=== PATIENT | male | born 1980 | race Two or more races ===

== ENCOUNTER 2018-07-06 00:51 | Emergency (ER) | payer MEDICAID, SELFPAY ==
[~2018-07-06] VITALS: Ht 177.8 cm; Wt 77.1 kg
[~2018-07-06 00:51] MED LIST: NORCO 5-325 TA1 EACH ORAL; NORCO 5-325 TA1 EACH PO
[2018-07-06] MEDS ORDERED: NKM (00:58)
--- NOTE | 2018-07-06 01:00 | NUR ---
ED Nurse Note: pt presents to ED with c/o left testicular pain for three days - denies trauma. 08/22. AO4. NAD. VSS.
--- NOTE | 2018-07-06 01:10 | NUR ---
ED Nurse Note: Urine collected; sent down to lab.
[2018-07-06 01:26] VITALS: BP 143/86
[2018-07-06 01:33] LABS: APPEARANCE,URINE CLEAR; BILIRUBIN, URINE NEGATIVE (NEGATIVE); GLUCOSE, URINE (UA) NEGATIVE (NEGATIVE); KETONES,URINE NEGATIVE (NEGATIVE); LEUKOCYTE ESTERASE ,URINE 1+ (NEGATIVE); NITRITE,URINE NEGATIVE (NEGATIVE); PH,URINE 5 (4.5-8.0); PROTEIN,URINE 1+ (NEGATIVE); UROBILINOGEN,URINE NORMAL MG/DL (0.0-1.0)
--- NOTE | 2018-07-06 01:49 | Emergency Room Report ---
History of Present Illness General Chief Complaint: Male Urogenital Problems Source: Patient Present Illness HPI This is a 37-year-old male with no past medical history. He presents with chief complaint. His main complaint is fungal infection of his toenails. His been ongoing for years. His girlfriend cut the nail and wanted a prescription for it. His second complaint is that since she is here for UTI symptoms discharge he wanted to be seen also. He said he has some mild pain when he urinates in the left testicle. This has been ongoing for 3 days. No fever or chills. No nausea no vomiting. Pain is very mild. Allergies: Coded Allergies: No Known Allergies (Unverified , 10/31/13) Patient History Past Medical History: see triage record, old chart reviewed Past Surgical History: none Pertinent Family History: none Social History: Denies: smoking Immunizations: other Reviewed Nursing Documentation: PMH: Agreed; PSxH: Agreed Nursing Documentation-PMH Past Medical History: No Stated History Review of Systems Eye: Denies: eye pain, blurred vision ENT: Denies: ear pain, nose congestion, throat swelling Respiratory: Denies: cough, shortness of breath Cardiovascular: Denies: chest pain, palpitations Gastrointestinal: Denies: abdominal pain, diarrhea, nausea, vomiting Musculoskeletal: Denies: back pain, joint pain Skin: Denies: rash Neurological: Denies: headache, numbness Endocrine: Denies: increased thirst, increased urine Hematologic/Lymphatic: Denies: easy bruising All Other Systems: negative except mentioned in HPI Physical Exam Vital Signs Date Time Temp Pulse Resp B/P (MAP) Pulse Ox O2 Delivery O2 Flow Rate FiO2 07/06/18 00:56 98.2 88 16 143/86 100 Room Air vitals normal Sp02 EP Interpretation: reviewed, normal General Appearance: well appearing, no apparent distress, alert Head: normocephalic, atraumatic Eyes: bilateral eye PERRL, bilateral eye EOMI ENT: hearing grossly normal, normal pharynx Neck: full range of motion, supple, no meningismus Respiratory: chest non-tender, lungs clear, normal breath sounds Cardiovascular #1: regular rate, rhythm, no murmur Gastrointestinal: normal bowel sounds, non tender, no mass, no organomegaly, no bruit, non-distended Musculoskeletal: back normal, gait/station normal, normal range of motion, other - Diffuse onychomycosis Neurologic: alert, oriented x3 Psychiatric: mood/affect normal Skin: warm/dry Medical Decision Making Diagnostic Impression: Primary Impression: Onychomycosis Additional Impression: Testicular pain, left ER Course Patient with a nickel mycosis. I explained to the patient that this require long-term treatment of at least several months. He need baseline lab work and monitoring. I see no need to prescribe medicine emergently. His physical exam is benign. No evidence of any torsion or evidence of infection. We'll discharge home. Last Vital Signs Date Time Temp Pulse Resp B/P (MAP) Pulse Ox O2 Delivery O2 Flow Rate FiO2 07/06/18 01:26 98.2 73 16 143/86 100 Room Air Status: unchanged Disposition: HOME, SELF-CARE Condition: Stable Referrals: NOT CHOSEN IPA/,REFERRING (PCP) Ismael Fuchs MD Jul 06, 2018 01:49
[2018-07-06 01:55] LABS: COLOR,URINE YELLOW
[2018-07-06 02:00] VITALS: BP 143/86
--- NOTE | 2018-07-06 02:00 | NUR ---
ED Nurse Note: Patient cleared for discharge per ERMD. AO4. NAD. VSS. Accompanied by parent. Parent given prescriptions and discharge instructions; verbalized understanding. ID band removed. Patient ambulated out with all personal belongings with steady gait. Addendum: 07/06/18 at 0202 by [facility] ED Nurse Note: Patient cleared for discharge per ERMD. AO4. NAD. VSS. Patient given prescriptions and discharge instructions; verbalized understanding. ID band removed. Patient ambulated out with all personal belongings with steady gait.
[2018-07-07] MEDS ORDERED: PENLAC6.6 M1 TP (13:46)
== END 2018-07-06 02:00 | disposition home or self-care (01) ==
LOC: EMR 01:12
DX: B35.1 Tinea unguium (principal); N50.812 Left testicular pain
CPT/HCPCS: 81003; 99283

== ENCOUNTER 2018-07-07 12:49 | Emergency (ER) | payer MEDICAID ==
[~2018-07-07] VITALS: Ht 180.3 cm; Wt 83.9 kg
[~2018-07-07 12:49] MED LIST changes: +NKM
[2018-07-07 13:05] VITALS: BP 149/92
--- NOTE | 2018-07-07 13:05 | NUR ---
ED Nurse Note: Pt want to be treated for STD and big toe of right foot nail pain, patient also complains of little "rashes" bilateral arms. patient is alert and oriented x4, ambulatory with a steady gait, VSS
[2018-07-07] MEDS ORDERED: Lidocaine 1% MPF 10mg/ml 5ml INJ ONE (13:15)
[2018-07-07] MEDS ORDERED: Azithromycin 250mg tab ORAL ONE (13:15)
--- NOTE | 2018-07-07 13:41 | Emergency Room Report ---
History of Present Illness General Chief Complaint: Male Urogenital Problems Source: Patient Present Illness HPI 37-year-old male presents to the emergency department complaining of recent exposure to venereal diseases. Patient is requesting treatment for STDs. Patient denies penile discharge, dysuria, hematuria, regular pain or swelling, swollen tender lymph nodes, fevers, chills, joint pain. Denies genital lesions or rashes. He is also reporting nail infection to the right great toe for several months now. Patient reports intermittent 3 out of 10 in severity light throbbing pain. Patient denies rashes or lesions, bleeding, swelling or purulent discharge. Patient denies trauma or fall. Denies aggravating or relieving factors, and no other complaints at this time. Denies pmhx or hx of immune compromise. Allergies: Coded Allergies: No Known Allergies (Unverified , 10/31/13) Patient History Past Medical History: see triage record Past Surgical History: none Pertinent Family History: none Immunizations: UTD Reviewed Nursing Documentation: PMH: Agreed; PSxH: Agreed Nursing Documentation-PMH Past Medical History: No Stated History Review of Systems All Other Systems: negative except mentioned in HPI Physical Exam Vital Signs Date Time Temp Pulse Resp B/P (MAP) Pulse Ox O2 Delivery O2 Flow Rate FiO2 07/07/18 12:56 98.6 100 18 149/92 98 Room Air Sp02 EP Interpretation: reviewed, normal General Appearance: no apparent distress, alert, GCS 15, non-toxic Head: normocephalic, atraumatic Eyes: bilateral eye normal inspection, bilateral eye PERRL ENT: hearing grossly normal, normal voice Neck: full range of motion Respiratory: lungs clear, normal breath sounds, speaking full sentences Cardiovascular #1: regular rate, rhythm, normal capillary refill Cardiovascular #2: 2+ dorsalis pedis (R) Gastrointestinal: normal bowel sounds, non tender, soft, non-distended, no guarding Rectal: deferred Genitourinary: normal inspection, no CVA tenderness, other - Genital exam deffered by pt. Musculoskeletal: back normal, gait/station normal, normal range of motion, non- tender Neurologic: alert, oriented x3, responsive, motor strength/tone normal, sensory intact, normal gait, speech normal, grossly normal Psychiatric: judgement/insight normal Skin: normal color, no rash, warm/dry, well hydrated, other - Nail of the left great toe is thickened and has yellow discoloration. no surrounding soft tissue infection/involvement. , no subungual hematoma, warmth or lesions. Lymphatic: no adenopathy Medical Decision Making PA Attestation Dr. Daly is my supervising Physician whom patient management has been discussed with. Diagnostic Impression: Primary Impression: Contact with or exposure to venereal diseases Additional Impression: Onychomycosis of great toe ER Course 37-year-old male presents to the emergency department complaining of recent exposure to venereal diseases. Patient is requesting treatment for STDs. Patient denies penile discharge, dysuria, hematuria, regular pain or swelling, swollen tender lymph nodes, fevers, chills, joint pain. Denies genital lesions or rashes. He is also reporting nail infection to the right great toe for several months now. Patient reports intermittent 3 out of 10 in severity light throbbing pain. Patient denies rashes or lesions, bleeding, swelling or purulent discharge. Patient denies trauma or fall. Denies aggravating or relieving factors, and no other complaints at this time. Denies pmhx or hx of immune compromise. Ddx considered but are not limited to UTi , Urethritis, LGV, STI, Stone, Cystitis, prostatitis Vital signs: are WNL, pt. is afebrile H&PE are most consistent with exposure to venereal disease, onychomycosis of the right great toe. ORDERS: Testing not performed as pt. is being prophylactically treated. ED INTERVENTIONS: -250mg Rocephin IM -1G azithromycin DISCHARGE: At this time pt. is stable for d/c to home. Will provide printed patient care instructions, and any necessary prescriptions. Care plan and follow up instructions have been discussed with the patient prior to discharge. Last Vital Signs Date Time Temp Pulse Resp B/P (MAP) Pulse Ox O2 Delivery O2 Flow Rate FiO2 07/07/18 12:56 98.6 100 18 149/92 98 Room Air Disposition: HOME, SELF-CARE Condition: Stable Referrals: NOT CHOSEN IPA/MD,REFERRING (PCP) Patient Instructions: Sexually Transmitted Disease, [id number] Additional Instructions: Take medications as directed. ! Wait 7 days before having any sexual intercourse as fever still contagious until medications have completely which would take about 5-7 days. !! !! Follow up with a Primary Care Provider in 3-5 days, even if your symptoms have resolved. --Please review list of primary care clinics, if you do not already have a primary care provider Return sooner to ED if new symptoms occur, or current symptoms become worse. - Please note that this Emergency Department Report was dictated using CANDDiregistered mail clerk technology software, occasionally this can lead to erroneous entry secondary to interpretation by the dictation equipment. Princess Suh Jul 07, 2018 13:41
[2018-07-07] MEDS ORDERED: PENLAC6.6 M1 TP (13:46)
[2018-07-07 14:00] VITALS: BP 149/92
--- NOTE | 2018-07-07 14:00 | NUR ---
ED Nurse Note: Pt cleared by health care provider for discharge. ACI given and explained to pt and verbalized understanding. All medical devices such as ID band removed. Pt left with all personal belongings. Pt is AAO x4 and ambulates with steady gait.
== END 2018-07-07 14:00 | disposition home or self-care (01) ==
LOC: EMR 13:19
DX: Z20.2 Contact with and (suspected) exposure to infections with a predominantly sexual mode of transmission (principal); B35.1 Tinea unguium
CPT/HCPCS: 96372; 96374; 99284; J0696; Q0144

== ENCOUNTER 2019-05-20 13:46 | Emergency (ER) | payer MEDICAID ==
[~2019-05-20] VITALS: Ht 180.3 cm; Wt 77.1 kg
[~2019-05-20 13:46] MED LIST changes: +PENLAC6.6 M1 TP
[2019-05-20 14:10] VITALS: BP 137/98
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
[2019-05-20] MEDS ORDERED: Omnipaque-300 100ml vial INJ PRN (14:30)
[2019-05-20] MEDS ORDERED: Ketorolac 30mg Inj IV ONE (14:30)
--- NOTE | 2019-05-20 14:35 | NUR ---
ED Nurse Note: Transporter taking patient to xray
--- NOTE | 2019-05-20 15:06 | NUR ---
ED Nurse Note: Patient back from xray. Transporter states they could not do the xray d/t patient being unable to stand. Will do portable xray.
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
--- NOTE | 2019-05-20 16:10 | NUR ---
ED Nurse Note: Patient taken to repeat CT d/t patient moving too much during first attempt.
[2019-05-20 16:32] LABS: BASOPHILS % (AUTO) 0.6 % (0.0-2.0); EOSINOPHILS % (AUTO) 1.5 % (0.0-3.0); HEMATOCRIT 38.9 % (42.0-52.0); HEMOGLOBIN 13.5 G/DL (14.2-18.0); MEAN CORPUSCULAR VOLUME 79 FL (80-99); MONOCYTES % (AUTO) 9.3 % (1.0-10.0); NEUTROPHILS % (AUTO) 71.5 % (45.0-75.0); PLATELET COUNT 220 K/UL (150-450); RED BLOOD COUNT 4.94 M/UL (4.70-6.10); RED CELL DISTRIBUTION WIDTH 11.9 % (11.6-14.8)
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
[2019-05-20 16:38] LABS: ANION GAP 9 mmol/L (5-15); BLOOD UREA NITROGEN 16 mg/dL (7-18); CALCIUM 8.8 MG/DL (8.5-10.1); CARBON DIOXIDE 26 MMOL/L (21-32); CHLORIDE 107 MMOL/L (98-107); CREATININE 0.8 MG/DL (0.55-1.30); POTASSIUM 3.9 MMOL/L (3.5-5.1); SODIUM 142 MMOL/L (136-145)
[2019-05-20 16:48] LABS: ALANINE AMINOTRANSFERASE 33 U/L (12-78); ALBUMIN 3.6 G/DL (3.4-5.0); ALKALINE PHOSPHATASE 117 U/L (46-116); ASPARTATE AMINO TRANSFERASE 41 U/L (15-37); BILIRUBIN,TOTAL 0.6 MG/DL (0.2-1.0)
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
[2019-05-20 17:15] VITALS: BP 135/88
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
[2019-05-20 18:49] LABS: APPEARANCE,URINE CLEAR; BILIRUBIN, URINE NEGATIVE (NEGATIVE); COLOR,URINE PALE YELLOW; GLUCOSE, URINE (UA) NEGATIVE (NEGATIVE); KETONES,URINE NEGATIVE (NEGATIVE); LEUKOCYTE ESTERASE ,URINE NEGATIVE (NEGATIVE); NITRITE,URINE NEGATIVE (NEGATIVE); PH,URINE 6 (4.5-8.0); PROTEIN,URINE NEGATIVE (NEGATIVE); UROBILINOGEN,URINE NORMAL MG/DL (0.0-1.0)
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
[2019-05-20] MEDS ORDERED: IBUPROFEN600 MG ORAL (19:38)
--- NOTE | 2019-05-20 20:26 | NUR ---
ED Nurse Note: pt reports generalized body ache and states he is in a lot of pain, ERPA notified and received order for 600mg ibuprofen prior to d/c. po once dose.
[2019-05-20] MEDS ORDERED: LIDODERM700 M1 TOPIC (20:35)
[2019-05-20 20:45] VITALS: BP 134/83
--- NOTE | 2019-05-20 20:45 | NUR ---
ED Nurse Note: pt is cleared to be d/c per ERMD, pt discharge and aftercare instruction provided w/ prescription, pt education done via discussion and handout, pt advised to follow up with pcp or return to ED if changes in condition, vss, ambulatory w/ steady gait, iv d/c and id band removed, pt advised to stop using substance drugs, pt verbalized understanding left w/ all belongings.
== END 2019-05-20 20:45 | disposition home or self-care (01) ==
LOC: EMR 15:10
DX: T14.8XXA Other injury of unspecified body region, initial encounter (principal); F15.10 Other stimulant abuse, uncomplicated; V03.99XA Pedestrian with other conveyance injured in collision with car, pick-up truck or van, unspecified whether traffic or nontraffic accident, initial encounter; Y93.55 Activity, bike riding; Y92.410 Unspecified street and highway as the place of occurrence of the external cause
CPT/HCPCS: 36415; 70450; 71250; 72125; 73030; 74176; 80053; 80307; 81003; 85025; 96361; 96374; 96375; G0480; J1885; J2405; J7030; Z7502; 99284